=== PATIENT | male | born 1945 | race Caucasian/White ===

== ENCOUNTER 2016-06-22 13:25 | Emergency (ER) | payer MEDICARE, OTHER ==
[~2016-06-22] VITALS: Ht 167.6 cm; Wt 84.0 kg
[~2016-06-22 13:25] MED LIST: ALLO100T PO; ASPI-664 PO; ATOR10TA65 PO; CARV6.2579 PO; EZET10TA3 PO; FURO40TA4 PO; LANT3I SC; LINA5TAB PO; LOSA25TA5 PO; LYR75 PO; ONDA4TAB8 PO; PANT40TA4 PO
[2016-06-22 13:29] VITALS: Ht 167.6 cm; Wt 84.0 kg
[2016-06-22] MEDS ORDERED: AZITHROMYCIN 250 MG TAB PO ONE (16:30)
--- NOTE | 2016-06-22 16:56 | RADRPT ---
PROCEDURE: XR Chest. CLINICAL INDICATION: Shortness of breath. TECHNIQUE: Single frontal view. COMPARISON: 06/18/2015. FINDINGS: The lungs are clear. The heart is enlarged. There is calcification in the aorta consistent with atherosclerosis. There has been previous median sternotomy. There is a left-sided biventricular permanent pacemaker with l sanaz in the right atrium, right ventricle, and coronary sinus. There is a shock coil consistent wit h internal cardiac defibrillator on the right ventricular lead. There is no pleural effusion or pneumothorax. There is a new left shoulder reverse arthroplasty. IMPRESSION: 1. New left shoulder reverse arthroplasty. 2. Otherwise no change from 06/18/2015. RPTAT: QQ .Leland Resendiz MD, MD Date Time Electronically viewed and signed by .Leland Resendiz MD, on 06/22/2016 16:56 .R/
[2016-06-22] MEDS ORDERED: ONDANSETRON (ODT) 4 MG TAB ODT STA (17:35)
[2016-06-22] MEDS ORDERED: AZIT250T94 PO (17:36)
[2016-06-22] MEDS ORDERED: ONDA4TAB14 PO (17:36)
[2016-06-22 18:09] VITALS: BP 140/70; PULSE 75; RESP 18; TEMP 98.7
--- NOTE | 2016-06-22 18:26 | ERD ---
ER Documentation Chief Complaint Date/Time DATE: 06/22/16 TIME: 18:26 Chief Complaint cough x 2 days , spitting up blood today , sore throat HPI Patient is a 70-year-old male with CHF and diabetes who presents with a cough. The patient said that he started with severe cough on Tuesday at 3 AM. He said "my chest was full of garbage". He has been coughing all day and started with yellow coughing and it turned white. Today it turned pink and yellow as it was mixed with some blood and he was concerned. He takes an 81 mg aspirin but no other blood thinners. 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 Upon review of old medical records this is the patient's 10th visit to the ER since 2010. The patient's primary doctor is Dr. Hendricks. ROS All systems reviewed and are negative except as per history of present illness. Medications Home Meds Active Scripts Ondansetron (Ondansetron Odt) 4 Mg Tab.rapdis, 4 MG PO Q6H Y for NAUSEA AND/OR VOMITING, #30 TAB Prov:ABELARDO LORA MD 06/22/16 Azithromycin* (Zithromax*) 250 Mg Tablet, 250 MG PO DAILY for 4 Days, TAB Prov:ABELARDO LORA MD 06/22/16 Ondansetron Hcl* (Zofran*) 4 Mg Tablet, 4 MG PO Q8H Y for NAUSEA AND/OR VOMITING , #14 TAB Prov:PHANI WHALEN DO 03/19/15 Linagliptin (TRADJENTA) 5 Mg Tablet, 5 MG PO DAILY, #30 Prov:JEREMIE HENDRICKS MD 01/25/14 Ezetimibe* (Zetia*) 10 Mg Tab, 10 MG PO QHS for 30 Days Prov:JEREMIE HENDRICKS MD 01/25/14 Reported Medications Allopurinol* (Allopurinol*) 100 Mg Tablet, 100 MG PO DIRECTED 06/18/15 Pregabalin* (Lyrica*) 75 Mg Capsule, 75 MG PO BID, CAP 06/18/15 Aspirin* (Aspirin* EC) 81 Mg Tablet.dr, 81 MG PO DAILY, TAB 06/18/15 Losartan Potassium* (Losartan Potassium*) 25 Mg Tablet, 25 MG PO DAILY, TAB 03/19/15 Pantoprazole* (Pantoprazole*) 40 Mg Tablet.dr, 40 MG PO DAILY Y for GASTROINTESTINAL UPSET, TAB 03/19/15 Atorvastatin Calcium (Atorvastatin Calcium) 10 Mg Tablet, 10 MG PO QHS, TAB 03/19/15 Carvedilol* (Carvedilol*) 6.25 Mg Tablet, 6.25 MG PO BID, TAB 03/19/15 Furosemide* (Furosemide*) 40 Mg Tablet, 40 MG PO DAILY, TAB 03/19/15 Insulin Glargine* (Lantus*) 100 Unit/Ml Soln, 12 UNIT SC DAILY, EA 01/24/14 Allergies Allergies: Coded Allergies: ibuprofen (Unverified Allergy, Unknown, 06/18/15) PMhx/Soc History of Surgery: No (defibrillator 2011, CABG 2010, right knee surgery 2010) Anesthesia Reaction: No Hx Neurological Disorder: No Hx Respiratory Disorders: Yes (chronic cough) Hx Cardiac Disorders: Yes (heart attack 2011, HTN) Hx Psychiatric Problems: No Hx Miscellaneous Medical Probl: Yes (hearnia repair 2012) Hx Alcohol Use: Yes (socially once a month) Hx Substance Use: No Hx Tobacco Use: No Smoking Status: Never smoker FmHx Family History: No diabetes Physical Exam Vitals Vital Signs Date Time Temp Pulse Resp B/P Pulse Ox O2 Delivery O2 Flow Rate FiO2 06/22/16 18:09 98.7 75 18 140/70 100 Room Air 06/22/16 13:29 98.1 75 18 141/68 98 Physical Exam Const: No acute distress, speaking in full sentences Head: Atraumatic Eyes: Normal Conjunctiva ENT: Normal External Ears, Nose and Mouth. Neck: Full range of motion..~ No meningismus. Resp: Clear to auscultation bilaterally, no accessory muscle use or retractions Cardio: Regular rate and rhythm, no murmurs Abd: Soft, non tender, non distended. Normal bowel sounds Skin: No petechiae or rashes Back: No midline or flank tenderness Ext: No cyanosis, or edema Neur: Awake and alert Psych: Normal Mood and Affect Results 24 hrs Current Medications Medications (Trade) Dose Ordered Sig/Karthik Route PRN Reason Start Time Stop Time Status Last Admin Dose Admin Azithromycin (Zithromax) 500 mg ONCE ONCE PO 06/22/16 16:30 06/22/16 16:31 DC 06/22/16 16:41 Ondansetron HCl (Zofran Odt) 4 mg ONCE STAT ODT 06/22/16 17:35 06/22/16 17:37 DC 06/22/16 17:40 Procedures/MDM Chest x-ray showed no pneumonia per radiology. Patient is a 70-year-old male presents with cough with productive sputum and streaks of blood. I believe this is most likely a bronchitis. There is no sign of pneumonia on chest x-ray. I doubt pulmonary embolism or pneumothorax. I believe outpatient management is appropriate at this time. He is in no distress and is well-appearing otherwise. He has had no respiratory distress in the emergency department. The patient can return for any worsening symptoms. The patient went to follow-up closely with his primary doctor within 24-48 hours. He was given Zithromax and Zofran in the emergency department and will be discharged with the same. Departure Diagnosis: Primary Impression: Bronchitis Additional Impression: Hemoptysis Condition: Fair Patient Instructions: Bronchitis, Antiobiotic Treatment (Adult) Additional Instructions: Call your primary care doctor TOMORROW for an appointment during the next 1-2 days.See the doctor sooner or return here if your condition worsens before your appointment time. ABELARDO LORA MD Jun 22, 2016 18:26
== END 2016-06-22 18:11 | disposition home or self-care (01) ==
LOC: E/R 13:25
DX: J20.9 Acute bronchitis, unspecified (principal); R04.2 Hemoptysis; I10 Essential (primary) hypertension; I50.9 Heart failure, unspecified; E11.9 Type 2 diabetes mellitus without complications; Z79.4 Long term (current) use of insulin; Z79.82 Long term (current) use of aspirin; Z98.61 Coronary angioplasty status; Z95.810 Presence of automatic (implantable) cardiac defibrillator
CPT/HCPCS: 71010

== ENCOUNTER 2018-03-03 15:26 | Inpatient (IN) | END 2018-03-05 15:25 | disposition home or self-care (01) | DRG 291 ==

== ENCOUNTER 2018-03-19 21:44 | Observation (INO) | payer MEDICARE, OTHER ==
[~2018-03-19] VITALS: Ht 167.6 cm; Wt 89.0 kg
[~2018-03-19 21:44] MED LIST changes: +ALIR75PE SQ; +AMIO200T4 PO; -ASPI-664 PO; +ASPI-817 PO; -ATOR10TA65 PO; +CLOP75TA19 PO; +DULA1.5P SQ; -EZET10TA3 PO; +EZET10TA31 PO; +FINA5TAB4 PO; +FURO20TA3 PO; -FURO40TA4 PO; +IVAB5TAB PO; -LINA5TAB PO; -LOSA25TA5 PO; -LYR75 PO; +NATE120T PO; -ONDA4TAB8 PO; -PANT40TA4 PO; +ZOLP5TAB PO
[2018-03-20] VITALS (9 sets, daily range): BP systolic 112–126; BP diastolic 56–66; PULSE 55–69; RESP 16–22; Ht 167.6 cm; Wt 89.0 kg
[2018-03-20] MEDS ORDERED: FUROSEMIDE 20 MG INJ IV ONE
--- NOTE | 2018-03-20 | ERD ---
ER Documentation Chief Complaint Chief Complaint PALPITATIONS, SOB, WEAKNESS; STENTS AND ANGIOGRAM X2WKS AGO HPI This is a 72-year-old male who presents for evaluation of chest pain. Patient has a strong history of coronary disease, he is also had a valve replacement, he has an AICD and a pacemaker. He was admitted in February 2018, after discharge he states that he still has generally not felt well and has progressively develo ped more exertional shortness of breath. He denies fever, leg swelling, or hemoptysis, on his recent admission he had a CT angiogram to evaluate for pulmonary embolism which was negative. There are no relieving factors to his symptoms. ROS All systems reviewed and are negative except as per history of present illness. Medications Home Meds Active Scripts Zolpidem Tartrate (Ambien Mohamud) 5 Mg Tablet, 5 MG PO QHS PRN for INSOMNIA for 30 Days, #30 TAB 3 Refills Prov:CAMI HARPER MD 03/05/18 Furosemide* (Furosemide*) 20 Mg Tablet, 20 MG PO DAILY for 30 Days, #30 TAB 3 Refills Prov:CAMI HARPER MD 03/05/18 Finasteride* (Finasteride*) 5 Mg Tablet, 5 MG PO DAILY for 30 Days, #30 TAB 3 Refills Prov:CAMI HARPER MD 03/05/18 Allopurinol* (Allopurinol*) 100 Mg Tablet, 100 MG PO DAILY for 30 Days, #30 TAB 3 Refills Prov:CAMI HARPER MD 03/05/18 Amiodarone Hcl* (Amiodarone Hcl*) 200 Mg Tablet, 100 MG PO DAILY for 30 Days, #30 TAB 3 Refills Prov:CAMI HARPER MD 03/05/18 Reported Medications Dulaglutide (Trulicity) 1.5 Mg/0.5 Ml Pen.injctr, 1.5 MG SQ Q FRI 03/02/18 Nateglinide* (Nateglinide*) 120 Mg Tablet, 120 MG PO AC MEALS, TAB 03/02/18 Clopidogrel Bisulfate* (Clopidogrel Bisulfate*) 75 Mg Tablet, 75 MG PO DAILY, #30 TAB 03/02/18 Ezetimibe* (Zetia*) 10 Mg Tablet, 10 MG PO HS, TAB 03/02/18 Insulin Glargine* (Lantus*) 100 Unit/Ml Soln, 24 UNIT SC QHS, #1 VIAL 03/02/18 Alirocumab (Praluent Pen) 75 Mg/1 Ml Pen.injctr, 75 MG SQ Q 2 WEEK 03/02/18 Carvedilol* (Carvedilol*) 6.25 Mg Tablet, 6.25 MG PO BID, #60 TAB 03/02/18 Aspirin* (Aspirin* EC) 81 Mg Tablet.dr, 81 MG PO DAILY, TAB 03/02/18 Ivabradine HCl (Corlanor) 5 Mg Tablet, 5 MG PO BID, #60 TAB 03/02/18 Allergies Allergies: Coded Allergies: ibuprofen (Unverified Allergy, Unknown, 03/02/18) oxycodone (Unverified Allergy, Unknown, VOMITING, 03/02/18) PMhx/Soc History of Surgery: Yes (stent 2 wks ago, pacemaker 2013, shoulder 2015, open heart 2011, knee 20 yr) Anesthesia Reaction: No Hx Neurological Disorder: No Hx Respiratory Disorders: No Hx Cardiac Disorders: Yes (CHF, afib) Hx Psychiatric Problems: No Hx Miscellaneous Medical Probl: No Hx Alcohol Use: Yes (socially 1-2 beer/month) Hx Substance Use: No Hx Tobacco Use: Yes Smoking Status: Former smoker Physical Exam Vitals Vital Signs Date Temp Pulse Resp B/P (MAP) Pulse Ox O2 O2 Flow FiO2 Time Delivery Rate 03/19/18 98.0 55 24 119/63 97 Room Air 22:31 (81) 03/19/18 97.8 71 19 137/66 96 21:46 (89) Physical Exam Const: No acute distress Head: Atraumatic Eyes: Normal Conjunctiva ENT: Normal External Ears, Nose and Mouth. Neck: Full range of motion. No meningismus. Resp: Clear to auscultation bilaterally Cardio: Regular rate and rhythm, no murmurs Abd: Soft, non tender, non distended. Normal bowel sounds Skin: No petechiae or rashes Back: No midline or flank tenderness Ext: No cyanosis, or edema Neur: Awake and alert Psych: Normal Mood and Affect Result Diagram: 03/19/18230203/19/182302 Results 24 hrs Laboratory Tests Test 03/19/18 23:03 White Blood Count 7.8 10^3/ul Red Blood Count 4.00 10^6/ul Hemoglobin 11.8 g/dl Hematocrit 37.6 % Mean Corpuscular Volume 94.0 fl Mean Corpuscular Hemoglobin 29.5 pg Mean Corpuscular Hemoglobin Concent 31.4 g/dl Red Cell Distribution Width 13.5 % Platelet Count 247 10^3/UL Mean Platelet Volume 10.4 fl Immature Granulocytes % 0.400 % Neutrophils % 71.9 % Lymphocytes % 15.7 % Monocytes % 9.0 % Eosinophils % 2.2 % Basophils % 0.8 % Nucleated Red Blood Cells % 0.0 /100WBC Immature Granulocytes # 0.030 10^3/ul Neutrophils # 5.6 10^3/ul Lymphocytes # 1.2 10^3/ul Monocytes # 0.7 10^3/ul Eosinophils # 0.2 10^3/ul Basophils # 0.1 10^3/ul Nucleated Red Blood Cells # 0.0 10^3/ul Prothrombin Time 14.8 Sec Prothrombin Time Ratio 1.2 INR International Normalized Ratio 1.15 Sodium Level 138 mmol/L Potassium Level 4.3 mmol/L Chloride Level 108 mmol/L Carbon Dioxide Level 21 mmol/L Anion Gap 9 Blood Urea Nitrogen 36 mg/dl Creatinine 1.62 mg/dl Est Glomerular Filtrat Rate mL/min mL/min Glucose Level 87 mg/dl Calcium Level 9.1 mg/dl Total Bilirubin 0.1 mg/dl Direct Bilirubin 0.00 mg/dl Indirect Bilirubin 0.1 mg/dl Aspartate Amino Transf (AST/SGOT) 84 IU/L Alanine Aminotransferase (ALT/SGPT) 87 IU/L Alkaline Phosphatase 95 IU/L Troponin I 0.024 ng/ml B-Type Natriuretic Peptide 5270 PG/ML Total Protein 6.8 g/dl Albumin 3.9 g/dl Globulin 2.90 g/dl Albumin/Globulin Ratio 1.34 Current Medications Medications Dose Sig/Karthik Start Time Status Last (Trade) Ordered Route PRN Stop Time Admin Dose Reason Admin Furosemide 20 mg ONCE ONCE 03/20/18 UNV (Lasix) IV 00:00 03/20/18 00:01 Procedures/MDM This is a pleasant 72-year-old male who presents for evaluation of exertional chest pain and shortness of breath. Given his strong cardiac history, my primary concern was for acute coronary syndrome, his troponin was negative, his basal natruretic peptide does show an increase, and I have concern for worsening CHF. I do not suspect pulmonary embolism, or aortic dissection. I recommend the patient be admitted for treatment and further workup, he will be given a dose of IV Lasix here. Patient will be admitted to Dr. Harper in telemetry Departure Diagnosis: Primary Impression: Chest pain Chest pain type: unspecified Qualified Codes: R07.9 - Chest pain, unspecified Additional Impressions: Acute exacerbation of CHF (congestive heart failure) Heart failure type: systolic Qualified Codes: I50.23 - Acute on chronic systolic (congestive) heart failure Essential (primary) hypertension Condition: Stable CAREY BLISS MD Mar 20, 2018 00:00
[2018-03-20] MEDS ORDERED: DOCUSATE SODIUM 100 MG CAP PO PRN (03:00)
[2018-03-20] MEDS ORDERED: NITROGLYCERIN (SL) 0.4 MG TAB SL PRN (03:00)
[2018-03-20] MEDS ORDERED: ONDANSETRON 4 MG INJ IV PRN (03:00)
[2018-03-20] MEDS ORDERED: NACL 0.9% 3 ML SYG IV SCH (03:00)
[2018-03-20] MEDS ORDERED: ACETAMINOPHEN 325 MG TAB PO PRN (03:00)
[2018-03-20] MEDS ORDERED: LORAZEPAM 0.5 MG TAB PO PRN (03:00)
[2018-03-20] MEDS ORDERED: ZOLPIDEM 5 MG TAB PO PRN ×2 (03:00)
[2018-03-20] MEDS ORDERED: BISACODYL (EC) 5 MG TAB PO PRN (03:00)
[2018-03-20] MEDS ORDERED: GLUCOSE GEL 15 GRAM TUBE PO PRN ×2 (04:00)
[2018-03-20] MEDS ORDERED: GLUCOSE GEL 15 GRAM TUBE BUCCAL PRN (04:00)
[2018-03-20] MEDS ORDERED: GLUCAGON 1 MG INJ IM PRN (04:00)
[2018-03-20] MEDS ORDERED: DEXTROSE 50% 50 ML SYRINGE IV PRN ×2 (04:00)
[2018-03-20] MEDS: NATEGLINIDE 120 MG TAB PO SCH ×2 (07:25→11:20)
[2018-03-20] MEDS: INSULIN ASPART [NOVOLOG] 3 ML PEN SC SCH ×4 (07:45→21:00)
[2018-03-20] MEDS ORDERED: IVABRADINE HCL 5 MG TABLET PO SCH (07:55)
[2018-03-20] MEDS: ASPIRIN (EC) 81 MG TAB PO SCH (08:10)
[2018-03-20] MEDS: ALLOPURINOL 100 MG TAB PO SCH (08:10)
[2018-03-20] MEDS: FUROSEMIDE 20 MG TAB PO SCH (08:10)
[2018-03-20] MEDS: FINASTERIDE 5 MG TAB PO SCH (08:10)
[2018-03-20] MEDS: CLOPIDOGREL 75 MG TAB PO SCH (08:10)
[2018-03-20] MEDS: HEPARIN 5,000 UNIT/1 ML VIAL SC SCH ×2 (08:19→21:39)
[2018-03-20] MEDS ORDERED: AMIODARONE 200 MG TAB PO SCH (09:00)
--- NOTE | 2018-03-20 10:25 | CONS ---
DATE OF ADMISSION: 03/19/2018 DATE OF CONSULTATION: 03/20/2018 TYPE OF CONSULTATION: Nephrology. REASON FOR CONSULTATION: Acute kidney injury, chronic kidney disease. PHYSICIAN REQUESTING CONSULT: Leo Iraheta MD HISTORY OF PRESENT ILLNESS: This is a 72-year-old male with a past medical history of CKD stage 3B w ith previous baseline creatinine around 1.5 and 1.6 mg/dL, a history of coronary artery disease, stat us post CABG, history of arrhythmia, history of pacemaker, history of ICD placement, history of diabe prateek, hypertension who presents to [facility] with complaints of generalized weaknes s, shortness of breath. The patient was recently admitted to [facility] 2 weeks ago with similar complaints of shortness of breath, at that time the patient was noted to be decompensated heart failure, was diuresed and discharged. Since his discharge, the patient santosh nues to have complaints of generalized weakness, palpitations, shortness of breath. The patient feel s that he has not felt the same since his recent stent placement 2 to 3 weeks ago. He denies hemopty sis, hematemesis or hematochezia. The patient states that he has been taking intermittent diuretics. He has had adequate urinary output. PAST MEDICAL HISTORY: History of chronic kidney disease, history of hypertension, history of coronar y artery disease, history of arrhythmia, history of valvular heart disease, history of diabetes. PAST SURGICAL HISTORY: Status post CABG, status post pacemaker, status post ICD placement. FAMILY HISTORY: No family history of kidney disease. SOCIAL HISTORY: Does not drink, smoke, do drugs. MEDICATIONS: The patient been reviewed. ALLERGIES: Please see list. REVIEW OF SYSTEMS: A 14-point review of systems conducted. Pertinent positives stated in HPI, other davis negative. PHYSICAL EXAMINATION: VITAL SIGNS: Blood pressure is 123/66, pulse 55, respiration 18, temperature 97.9. HEENT: Head is normocephalic. NECK: Supple. HEART: Regular rate. LUNGS: Show diminished breath sounds at base. ABDOMEN: Soft, nontender to palpation without rebound or guarding. EXTREMITIES: Negative for clubbing, cyanosis. Positive edema. DERMATOLOGIC: No rashes. MUSCULOSKELETAL: No joint effusion. NEUROLOGIC: No focal deficits. MEDICATIONS: Have been reviewed. LABORATORY DATA: Shows sodium 138, potassium 4.3, BUN 36, creatinine 1.62. AST, ALT elevated. BNP 5000. IMAGING: Chest x-ray shows stable cardiomegaly without evidence of overt failure, pneumonia. ASSESSMENT AND PLAN: This is a 72-year-old male who presents with: 1. Nonoliguric acute kidney injury on top of chronic kidney disease with previous baseline creatinin e around 1.5 to 1.8 mg/dL. Etiology of current acute kidney injury is secondary to hemodynamics. Re nal function is near baseline. Recommendation would be to check UA with microanalysis, check urine e lectrolytes. We will continue current medical management. Continue diuretic therapy, monitor electr olytes and renal function closely. Otherwise, continue supportive care, renally dose all meds, avoid nephrotoxins. 2. Acute heart failure, systolic, diastolic. The patient is currently decompensated with shortness of breath, elevated JVD, positive lower extremity edema. Continue diuretic regimen. Monitor I's and O's and renal function closely. Follow up with Cardiology. 3. Anemia. Monitor hemoglobin and hematocrit levels. 4. Mineral bone disorder, monitor calcium and phosphorus levels. 5. Chest pain, palpitations. Etiology may be secondary to congestive heart failure, rule out acute coronary syndrome. Check serial troponins medical management. Continue aspirin, continue beta block er. Follow up with cardiology. 6. Diabetes. Continue current insulin regimen. 7. Coronary artery disease. Continue medical management. 8. Sinus arrhythmia, status post pacemaker. Continue current treatment plan. 9. History of valvular heart disease. 10. Benign prostatic hypertrophy. Continue Proscar. Thank you, Dr. Iraheta, for this interesting consult. It will be a pleasure to follow patient with y ou throughout the hospital course. Dictated By: VIVIAN MAYORGA DO NR/NTS Conf#: [id number] DID#: [id number] CC: LEO IRAHETA MD;*EndCC*
--- NOTE | 2018-03-20 13:31 | HP ---
Date/Time of Note Date/Time of Note DATE: 03/20/18 TIME: 13:06 Assessment/Plan VTE Prophylaxis Risk score (from Nsg)>0 risk: 5 SCD applied (from Nsg): No SCD contraindicated: low risk/ambulating Pharmacological prophylaxis: heparin Lines/Catheters IV Catheter Type (from Nrs): Saline Lock Urinary Cath still in place: No Assessment/Plan Problems: (1) Chest pain Status: Acute Comment: May or may not be truly cardiac in nature. Consider possibility of onset of anxiety since most recent angioplasty. Will defer to cardiology to evaluate and decide. Qualifiers: Chest pain type: unspecified Qualified Codes: R07.9 - Chest pain, unspecified (2) Acute exacerbation of CHF (congestive heart failure) Status: Acute Comment: BNP elevated but possibly baseline for this pt. Will defer to cardiology and nephrology to decide if increase in baseline diuretics is warranted. Qualifiers: Heart failure type: systolic Qualified Codes: I50.23 - Acute on chronic systolic (congestive) heart failure (3) Chronic diastolic heart failure Status: Chronic Comment: See above. Cont. current regimen. 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 ASA and clopidogrel. Defer to cardiology. (5) Essential (primary) hypertension Status: Chronic Comment: BP in good control on carvedilol. Defer to cardiology. (6) Presence of xenogenic heart valve Status: Chronic Comment: Defer to cardiology (7) Presence of coronary angioplasty implant and graft Status: Chronic Comment: On ASA and clopidogrel. Defer to cardiology. (8) Presence of cardiac pacemaker Status: Chronic Comment: Seems to be operational. Defer to cardiology. (9) Chronic kidney disease, stage II (mild) Status: Chronic Comment: Stable. Defer to nephrology especially to monitor in the face of p ossibly increasing diuresis. (10) Enlarged prostate with lower urinary tract symptoms (LUTS) Status: Chronic Comment: Cont. finasteride. (11) Hyperuricemia without signs of inflammatory arthritis and tophaceous disease Status: Chronic Comment: Cont. allopurinol (12) Type 2 diabetes mellitus with other specified complication Status: Chronic Comment: In good control on lower dose lantus plus weekly dulasteride. Refusing nateglinide. Will hold for now. (13) Hyperlipidemia Status: Chronic Comment: Cont. ezetimibe and praluent. Result Diagram: 03/19/18 2303 03/19/18 2303 Results 24hrs Laboratory Tests Test 03/19/18 23:03 03/20/18 07:44 03/20/18 08:44 03/20/18 11:54 White Blood Count 7.8 # Red Blood Count 4.00 L Hemoglobin 11.8 L Hematocrit 37.6 L Mean Corpuscular Volume 94.0 Mean Corpuscular 29.5 Hemoglobin Mean Corpuscular 31.4 L Hemoglobin Concent Red Cell Distribution 13.5 Width Platelet Count 247 Mean Platelet Volume 10.4 Immature Granulocytes % 0.400 Neutrophils % 71.9 Lymphocytes % 15.7 Monocytes % 9.0 Eosinophils % 2.2 Basophils % 0.8 Nucleated Red Blood 0.0 Cells % Immature Granulocytes # 0.030 Neutrophils # 5.6 Lymphocytes # 1.2 Monocytes # 0.7 Eosinophils # 0.2 Basophils # 0.1 Nucleated Red Blood 0.0 Cells # Prothrombin Time 14.8 Prothrombin Time Ratio 1.2 INR International 1.15 Normalized Ratio Sodium Level 138 Potassium Level 4.3 Chloride Level 108 Carbon Dioxide Level 21 Anion Gap 9 Blood Urea Nitrogen 36 H Creatinine 1.62 H Est Glomerular Filtrat Rate mL/min Glucose Level 87 Calcium Level 9.1 Total Bilirubin 0.1 L Direct Bilirubin 0.00 Indirect Bilirubin 0.1 Aspartate Amino 84 H Transf (AST/SGOT) Alanine 87 H Aminotransferase (ALT/SG PT) Alkaline Phosphatase 95 Troponin I 0.024 B-Type Natriuretic 5270 H Peptide Total Protein 6.8 Albumin 3.9 Globulin 2.90 Albumin/Globulin Ratio 1.34 Bedside Glucose 76 119 109 HPI/ROS Admit Date/Time Admit Date/Time Mar 19, 2018 at 23:50 Hx of Present Illness 72 y/o [place] M w/ h/o T2DM, HTN, hyperlipidemia, CKD stage 2, BPH, xenogenic heart valve replacement, diastolic CHF, CAD w/ AICD and recent PCI w/ stent placement s/p hospitalization for CHF exacerbation 2 weeks ago. Pt. reports that since then has failed to regain his strength. Has opted out of cardiac rehab since that time and reports decreased exercise tolerance. However, felt well enough until last night when he was sitting at home and developed sensation of electric shock sensation radiating up to his head. Subsequently became diaphoretic and developed rushing sensation at lower mid-left chest. Came to ER. Troponin (-). BNP 5,270. CXR did not show infiltrate. Pt. admitted. Of note, since admit pt. had complete recurrence of symptoms from last night including sensation of diaphoresis which nurse reports pt. did NOT appear diaphoretic. In addition HR monitor did not validate tachycardia in that moment. ROS Constitutional: diaphoresis Eyes: no complaints ENT: no complaints Respiratory: shortness of breath Cardiovascular: lightheadedness, palpitations Gastrointestinal: no complaints Genitourinary: no complaints Musculoskeletal: no complaints Neurologic: no complaints PMH/Family/Social Past Medical History Medical History: angina, congestive heart failure, coronary artery disease, diabetes, high cholesterol, hypertension, renal disease, other (BPH, hyperuricemia) Medications Current Medications Allopurinol (Zyloprim) 100 mg DAILY PO Last administered on 03/20/18at 08:10; Admin Dose 100 MG; Start 03/20/18 at 09:00 Amiodarone HCl (Cordarone) 100 mg DAILY PO ; Start 03/20/18 at 09:00 Aspirin (Halfprin) 81 mg DAILY PO Last administered on 03/20/18at 08:10; Admin Dose 81 MG; Start 03/20/18 at 09:00 Carvedilol (Coreg) 6.25 mg BID PO ; Start 03/20/18 at 09:00 Clopidogrel Bisulfate (plaVIX) 75 mg DAILY PO Last administered on 03/20/18at 08:10; Admin Dose 75 MG; Start 03/20/18 at 09:00 EZETIMIBE (Zetia) 10 mg HS PO ; Start 03/20/18 at 21:00 Finasteride (Proscar) 5 mg DAILY PO Last administered on 03/20/18at 08:10; Admin Dose 5 MG; Start 03/20/18 at 09:00 Furosemide (Lasix) 20 mg DAILY PO Last administered on 03/20/18at 08:10; Admin Dose 20 MG; Start 03/20/18 at 09:00 Ivabradine (Corlanor) 5 mg BID WITH MEALS PO ; Start 03/20/18 at 07:55 Nateglinide (Starlix) 120 mg AC MEALS PO ; Start 03/20/18 at 07:25 IV Flush (NS 3 ml) 3 ml PER PROTOCOL IV ; Start 03/20/18 at 03:00 Lorazepam (Ativan) 0.5 mg Q8H PRN PO ANXIETY; Start 03/20/18 at 03:00 Ondansetron HCl (Zofran Inj) 4 mg Q6H PRN IV NAUSEA AND/OR VOMITING; Start 03/20/18 at 03:00 Nitroglycerin (Nitroglycerin (Sl Tab) 0.4 Mg) 1 tab Q5M PRN SL CHEST PAIN; Start 03/20/18 at 03:00 Acetaminophen (Tylenol Tab) 650 mg Q6H PRN PO PAIN LEVEL 1-3 OR FEVER Last administered on 03/20/18at 04:54; Admin Dose 650 MG; Start 03/20/18 at 03:00 Zolpidem Tartrate (Ambien) 5 mg QHS PRN PO INSOMNIA; Start 03/20/18 at 03:00 Docusate Sodium (Colace) 100 mg Q12H PRN PO CONSTIPATION; Start 03/20/18 at 03:00 Bisacodyl (Dulcolax) 5 mg DAILY PRN PO CONSTIPATION; Start 03/20/18 at 03:00 Heparin Sodium (Porcine) (Heparin (5000 Units/1ml)) 5,000 unit Q12 SC Last administered on 03/20/18at 08:19; Admin Dose 5,000 UNIT; Start 03/20/18 at 09:00 Diagnostic Test (Pha) (Accu-Chek) 1 ea 02 XX ; Start 03/21/18 at 02:00 Insulin Glargine (Lantus) 12 units DAILY@2000 SC ; Start 03/20/18 at 20:00 Insulin Aspart (Novolog Insulin Pen) NOVOLOG *MILD* ALGORITHM WITH MEALS BEDTIME SC ; Start 03/20/18 at 07:55 Miscellaneous Information 1 ea NOTE XX ; Start 03/20/18 at 04:00 Glucose (Glutose) 15 gm Q15M PRN PO DECREASED GLUCOSE; Start 03/20/18 at 04:00 Glucose (Glutose) 22.5 gm Q15M PRN PO DECREASED GLUCOSE; Start 03/20/18 at 04:00 Dextrose (D50w Syringe) 25 ml Q15M PRN IV DECREASED GLUCOSE; Start 03/20/18 at 04:00 Dextrose (D50w Syringe) 50 ml Q15M PRN IV DECREASED GLUCOSE; Start 03/20/18 at 04:00 Glucagon (Glucagen) 1 mg Q15M PRN IM DECREASED GLUCOSE; Start 03/20/18 at 04:00 Glucose (Glutose) 15 gm Q15M PRN BUCCAL DECREASED GLUCOSE; Start 03/20/18 at 04:00 Coded Allergies: ibuprofen (Unverified Allergy, Unknown, 03/02/18) oxycodone (Unverified Allergy, Unknown, VOMITING, 03/02/18) Past Surgical History Past Surgical Hx: angioplasty, other (aortic valve bioprosthesis, benign bladder cystectomy, TKA, shoulder surgery, AICD placement) Family History Significant Family History: cancer (stomach in father), other (aortic disease in mother) Social History B. 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 ago) Drug Use: none Exam/Review of Systems Vital Signs Vitals VS - Last 72 Hours, by Label Date Temp Pulse Resp B/P (MAP) Pulse Ox O2 O2 Flow FiO2 Time Delivery Rate 03/20/18 55 12:22 03/20/18 98.1 55 17 124/64 94 Room Air 11:24 (84) 03/20/18 55 08:14 03/20/18 Nasal 2.0 07:40 Cannula 03/20/18 97.9 63 18 123/66 96 Nasal 2.0 07:36 (85) Cannula 03/20/18 98.1 55 19 112/60 97 04:00 (77) 03/20/18 55 04:00 03/20/18 2.0 03:00 03/20/18 Nasal 2.0 02:50 Cannula 03/20/18 98.0 57 22 126/66 99 Nasal 2.0 02:30 (86) Cannula 03/20/18 55 26 125/73 97 Nasal 2.0 01:30 (90) Cannula 03/20/18 55 22 124/64 96 Nasal 2.0 01:00 (84) Cannula 03/20/18 98.3 59 19 126/73 99 Nasal 2.0 00:45 (90) Cannula 03/19/18 98.0 55 24 119/63 97 Room Air 22:31 (81) 03/19/18 97.8 71 19 137/66 96 21:46 (89) Vital Signs Date Temp Pulse Resp B/P (MAP) Pulse Ox O2 O2 Flow FiO2 Time Delivery Rate 03/20/18 55 12:22 03/20/18 98.1 17 124/64 94 Room Air 11:24 (84) 03/20/18 2.0 07:40 Intake and Output 03/19/18 03/19/18 03/20/18 1515:00 23:00 07:00 IntakeIntake Total 120 ml OutputOutput Total 100 ml BalanceBalance 20 ml Exam Constitutional: alert, oriented, other (obese) Psych: no complaints, nl mood/affect Respiratory: clear to auscultation, normal air movement Cardiovascular: regular rate and rhythm, nl pulses; No edema, No murmurs/extra sounds, No rub Gastrointestinal: soft, nl liver, spleen, non-tender, bowel sounds; No mass, No rebound or guarding Musculoskeletal: nl extremities to inspection Extremities: normal pulses; No cyanosis, No clubbing, No edema 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
--- NOTE | 2018-03-20 16:45 | CONS ---
Date/Time of Note Date/Time of Note DATE: 03/20/18 TIME: 16:38 Assessment/Plan Assessment/Plan Hospital Course 1. Dyspnea multifactorial mostly secondary to congestive heart failure: 2. Congestive heart failure acute on chronic secondary systolic heart failure 3. Hypertension 4. Diabetes 5. Coronary artery disease status post PCI of LAD 6. Dyslipidemia 7. Status post by V ICD 8. 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 Renal insufficiency: Recommendations: Continue with aspirin and Plavix We will continue with home carvedilol and Zetia Patient has not tolerating statin and is as an outpatient on PCSK9 inhibitors. We will continue that as outpatient every 2 weeks Lasix as per renal Diabetic management as per internal medicine/endocrine I will discontinue the amiodarone given his generalized fatigue and monitor him. We will check the thyroid function test as well Thank you for this referral. We will continue to follow along with you DAYANARA MORTON MD [facility] Result Diagram: 03/19/183 03/19/18 2303 Results 24hrs Laboratory Tests Test 03/19/18 23:03 03/20/18 07:44 03/20/18 08:44 03/20/18 11:54 White Blood Count 7.8 # Red Blood Count 4.00 L Hemoglobin 11.8 L Hematocrit 37.6 L Mean Corpuscular Volume 94.0 Mean Corpuscular 29.5 Hemoglobin Mean Corpuscular 31.4 L Hemoglobin Concent Red Cell Distribution 13.5 Width Platelet Count 247 Mean Platelet Volume 10.4 Immature Granulocytes % 0.400 Neutrophils % 71.9 Lymphocytes % 15.7 Monocytes % 9.0 Eosinophils % 2.2 Basophils % 0.8 Nucleated Red Blood 0.0 Cells % Immature Granulocytes # 0.030 Neutrophils # 5.6 Lymphocytes # 1.2 Monocytes # 0.7 Eosinophils # 0.2 Basophils # 0.1 Nucleated Red Blood 0.0 Cells # Prothrombin Time 14.8 Prothrombin Time Ratio 1.2 INR International 1.15 Normalized Ratio Sodium Level 138 Potassium Level 4.3 Chloride Level 108 Carbon Dioxide Level 21 Anion Gap 9 Blood Urea Nitrogen 36 H Creatinine 1.62 H Est Glomerular Filtrat Rate mL/min Glucose Level 87 Calcium Level 9.1 Total Bilirubin 0.1 L Direct Bilirubin 0.00 Indirect Bilirubin 0.1 Aspartate Amino 84 H Transf (AST/SGOT) Alanine 87 H Aminotransferase (ALT/SG PT) Alkaline Phosphatase 95 Troponin I 0.024 B-Type Natriuretic 5270 H Peptide Total Protein 6.8 Albumin 3.9 Globulin 2.90 Albumin/Globulin Ratio 1.34 Bedside Glucose 76 119 109 Test 03/20/18 13:20 Urine Color STRAW Urine Clarity CLEAR Urine pH 5.0 Urine Specific [place] 1.010 Urine Ketones NEGATIVE Urine Nitrite NEGATIVE Urine Bilirubin NEGATIVE Urine Urobilinogen NEGATIVE Urine Leukocyte Esterase NEGATIVE Urine Hemoglobin NEGATIVE Urine Random Creatinine 39.17 Urine Random Sodium 139 H Urine Glucose NEGATIVE Urine Total Protein 12.0 H Consultation Date/Type/Reason Admit Date/Time Mar 19, 2018 at 23:50 Date of Consultation: Mar 20, 2018 Type of Consult cv Reason for Consultation CHF Requesting Provider: CAMI IRAHETA MD Hx of Present Illness Hx of Present Illness Interventional cardiology consultation note Chief complaint: Shortness of breath, weakness Reason for consult: Congestive heart failure cardiomyopathy History of present illness: Thank you for this referral. History was obtained from the patient from discussion with the staff and physicians. Patient is also very well-known to me from office visits. Patient's old record was reviewed as well This is a very pleasant 72-year-old gentleman with multiple complicated medical history who came to emergency with complaint of shortness of breath fatigue and weakness over the past few days. Patient denies any chest pain or pressure. He also complains of orthopnea and difficulty breathing at nighttime has been having to sleep on 3 pillows. He has had minimal lower extremity edema. Allergies: Ibuprofen and oxycodone Medications were reviewed as per medical reconciliation sheet PAST MEDICAL HISTORY: Congestive heart failure, severe nonischemic cardiomyopathy, ejection fraction 25 to 31st %, history of aortic valve replacement, history of biventricular ICD placement, history of diabetes, hyper tension, dyslipidemia, hyperkalemia, chronic kidney disease, BPH. Ventricular tachycardia status post ICD discharge within the past few weeks. Patient also with significant coronary artery disease status post PCI of his LAD in 2018 PAST SURGICAL HISTORY: Aortic valve replacement in May 2010 with a 25 mm bioprosthetic aortic valve, history of biventricular ICD a [employer] ICD which had a change done last year by myself, history of the right knee surgery, cardiac catheterization in April 2009 showed ejection murmur at 20% at that time. Also had shown only 20% LAD disease and 20% RCA disease at that time. He had hernia repair in October [address] Lemon. PCI of his LAD 2018 ALLERGIES: NO KNOWN ALLERGIES. SOCIAL HISTORY: Does not smoke or drink. FAMILY HISTORY: No early coronary artery disease. Past Medical History Medical History: angina, congestive heart failure, coronary artery disease, diabetes, high cholesterol, hypertension, renal disease, other (BPH, hyperuricemia) Medications Current Medications Allopurinol (Zyloprim) 100 mg DAILY PO Last administered on 03/20/18at 08:10; Admin Dose 100 MG; Start 03/20/18 at 09:00 Amiodarone HCl (Cordarone) 100 mg DAILY PO ; Start 03/20/18 at 09:00 Aspirin (Halfprin) 81 mg DAILY PO Last administered on 03/20/18at 08:10; Admin Dose 81 MG; Start 03/20/18 at 09:00 Carvedilol (Coreg) 6.25 mg BID PO ; Start 03/20/18 at 09:00 Clopidogrel Bisulfate (plaVIX) 75 mg DAILY PO Last administered on 03/20/18at 08:10; Admin Dose 75 MG; Start 03/20/18 at 09:00 EZETIMIBE (Zetia) 10 mg HS PO ; Start 03/20/18 at 21:00 Finasteride (Proscar) 5 mg DAILY PO Last administered on 03/20/18at 08:10; Admin Dose 5 MG; Start 03/20/18 at 09:00 Furosemide (Lasix) 20 mg DAILY PO Last administered on 03/20/18at 08:10; Admin Dose 20 MG; Start 03/20/18 at 09:00 IV Flush (NS 3 ml) 3 ml PER PROTOCOL IV ; Start 03/20/18 at 03:00 Lorazepam (Ativan) 0.5 mg Q8H PRN PO ANXIETY; Start 03/20/18 at 03:00 Ondansetron HCl (Zofran Inj) 4 mg Q6H PRN IV NAUSEA AND/OR VOMITING; Start 03/20/18 at 03:00 Nitroglycerin (Nitroglycerin (Sl Tab) 0.4 Mg) 1 tab Q5M PRN SL CHEST PAIN; Start 03/20/18 at 03:00 Acetaminophen (Tylenol Tab) 650 mg Q6H PRN PO PAIN LEVEL 1-3 OR FEVER Last administered on 03/20/18at 04:54; Admin Dose 650 MG; Start 03/20/18 at 03:00 Zolpidem Tartrate (Ambien) 5 mg QHS PRN PO INSOMNIA; Start 03/20/18 at 03:00 Docusate Sodium (Colace) 100 mg Q12H PRN PO CONSTIPATION; Start 03/20/18 at 03:00 Bisacodyl (Dulcolax) 5 mg DAILY PRN PO CONSTIPATION; Start 03/20/18 at 03:00 Heparin Sodium (Porcine) (Heparin (5000 Units/1ml)) 5,000 unit Q12 SC Last administered on 03/20/18at 08:19; Admin Dose 5,000 UNIT; Start 03/20/18 at 09:00 Diagnostic Test (Pha) (Accu-Chek) 1 ea 02 XX ; Start 03/21/18 at 02:00 Insulin Glargine (Lantus) 12 units DAILY@2000 SC ; Start 03/20/18 at 20:00 Insulin Aspart (Novolog Insulin Pen) NOVOLOG *MILD* ALGORITHM WITH MEALS BEDTIME SC ; Start 03/20/18 at 07:55 Miscellaneous Information 1 ea NOTE XX ; Start 03/20/18 at 04:00 Glucose (Glutose) 15 gm Q15M PRN PO DECREASED GLUCOSE; Start 03/20/18 at 04:00 Glucose (Glutose) 22.5 gm Q15M PRN PO DECREASED GLUCOSE; Start 03/20/18 at 04:00 Dextrose (D50w Syringe) 25 ml Q15M PRN IV DECREASED GLUCOSE; Start 03/20/18 at 04:00 Dextrose (D50w Syringe) 50 ml Q15M PRN IV DECREASED GLUCOSE; Start 03/20/18 at 04:00 Glucagon (Glucagen) 1 mg Q15M PRN IM DECREASED GLUCOSE; Start 03/20/18 at 04:00 Glucose (Glutose) 15 gm Q15M PRN BUCCAL DECREASED GLUCOSE; Start 03/20/18 at 04:00 Ivabradine (Corlanor) 2.5 mg BID WITH MEALS PO ; Start 03/20/18 at 17:55 Allergies: Coded Allergies: ibuprofen (Unverified Allergy, Unknown, 03/02/18) oxycodone (Unverified Allergy, Unknown, VOMITING, 03/02/18) Past Surgical History Past Surgical Hx: angioplasty, other (aortic valve bioprosthesis, benign bladder cystectomy, TKA, shoulder surgery, AICD placement) Social History Alcohol Use: occasionally Smoking Status: Former smoker (1.5 ppd x 25 y, quit 32 y. ago) Drug Use: none Exam/Review of Systems Vital Signs Vitals Vital Signs Date Temp Pulse Resp B/P (MAP) Pulse Ox O2 O2 Flow FiO2 Time Delivery Rate 03/20/18 69 16:11 03/20/18 97.7 16 121/64 95 Room Air 15:22 (83) 03/20/18 2.0 13:00 Intake and Output 03/19/18 03/19/18 03/20/18 1515:00 23:00 07:00 IntakeIntake Total 120 ml OutputOutput Total 100 ml BalanceBalance 20 ml Exam General: no acute distress HEENT: NC/AT. pupils are equal. round. NECK: + JVD. no stridor. CV: RRR. systolic murmur; no gallop or rubs. PULM: no wheezing or rhonchi. GI: SOFT, NT, ND, no rebound or guarding Extremity: trace B/L LE edema. no clubbing. neuro: awake and alert, OX3. Psych: calm and pleasant rectal: deferred : normal EKG shows ventricular paced rhythm Chest x-ray shows: 1. Stable cardiomegaly without evidence of overt congestive failure or pneumonia. 2. Biventricular pacemaker, also stable. 3. Reverse arthroplasty left shoulder new since the prior study. Medications Medications Current Medications Allopurinol (Zyloprim) 100 mg DAILY PO Last administered on 03/20/18at 08:10; Admin Dose 100 MG; Start 03/20/18 at 09:00 Amiodarone HCl (Cordarone) 100 mg DAILY PO ; Start 03/20/18 at 09:00 Aspirin (Halfprin) 81 mg DAILY PO Last administered on 03/20/18at 08:10; Admin Dose 81 MG; Start 03/20/18 at 09:00 Carvedilol (Coreg) 6.25 mg BID PO ; Start 03/20/18 at 09:00 Clopidogrel Bisulfate (plaVIX) 75 mg DAILY PO Last administered on 03/20/18at 08:10; Admin Dose 75 MG; Start 03/20/18 at 09:00 EZETIMIBE (Zetia) 10 mg HS PO ; Start 03/20/18 at 21:00 Finasteride (Proscar) 5 mg DAILY PO Last administered on 03/20/18at 08:10; Admin Dose 5 MG; Start 03/20/18 at 09:00 Furosemide (Lasix) 20 mg DAILY PO Last administered on 03/20/18at 08:10; Admin Dose 20 MG; Start 03/20/18 at 09:00 IV Flush (NS 3 ml) 3 ml PER PROTOCOL IV ; Start 03/20/18 at 03:00 Lorazepam (Ativan) 0.5 mg Q8H PRN PO ANXIETY; Start 03/20/18 at 03:00 Ondansetron HCl (Zofran Inj) 4 mg Q6H PRN IV NAUSEA AND/OR VOMITING; Start 03/20/18 at 03:00 Nitroglycerin (Nitroglycerin (Sl Tab) 0.4 Mg) 1 tab Q5M PRN SL CHEST PAIN; Start 03/20/18 at 03:00 Acetaminophen (Tylenol Tab) 650 mg Q6H PRN PO PAIN LEVEL 1-3 OR FEVER Last administered on 03/20/18at 04:54; Admin Dose 650 MG; Start 03/20/18 at 03:00 Zolpidem Tartrate (Ambien) 5 mg QHS PRN PO INSOMNIA; Start 03/20/18 at 03:00 Docusate Sodium (Colace) 100 mg Q12H PRN PO CONSTIPATION; Start 03/20/18 at 03:00 Bisacodyl (Dulcolax) 5 mg DAILY PRN PO CONSTIPATION; Start 03/20/18 at 03:00 Heparin Sodium (Porcine) (Heparin (5000 Units/1ml)) 5,000 unit Q12 SC Last administered on 03/20/18at 08:19; Admin Dose 5,000 UNIT; Start 03/20/18 at 09:00 Diagnostic Test (Pha) (Accu-Chek) 1 ea 02 XX ; Start 03/21/18 at 02:00 Insulin Glargine (Lantus) 12 units DAILY@2000 SC ; Start 03/20/18 at 20:00 Insulin Aspart (Novolog Insulin Pen) NOVOLOG *MILD* ALGORITHM WITH MEALS BEDTIME SC ; Start 03/20/18 at 07:55 Miscellaneous Information 1 ea NOTE XX ; Start 03/20/18 at 04:00 Glucose (Glutose) 15 gm Q15M PRN PO DECREASED GLUCOSE; Start 03/20/18 at 04:00 Glucose (Glutose) 22.5 gm Q15M PRN PO DECREASED GLUCOSE; Start 03/20/18 at 04:00 Dextrose (D50w Syringe) 25 ml Q15M PRN IV DECREASED GLUCOSE; Start 03/20/18 at 04:00 Dextrose (D50w Syringe) 50 ml Q15M PRN IV DECREASED GLUCOSE; Start 03/20/18 at 04:00 Glucagon (Glucagen) 1 mg Q15M PRN IM DECREASED GLUCOSE; Start 03/20/18 at 04:00 Glucose (Glutose) 15 gm Q15M PRN BUCCAL DECREASED GLUCOSE; Start 03/20/18 at 04:00 Ivabradine (Corlanor) 2.5 mg BID WITH MEALS PO ; Start 03/20/18 at 17:55 DAYANARA MORTON MD Mar 20, 2018 16:45
[2018-03-20] MEDS: IVABRADINE HCL 5 MG TABLET PO SCH (18:30)
[2018-03-20] MEDS ORDERED: INSULIN GLARGINE [LANTus] (100 UNITS/ML) SYG SC SCH (20:00)
[2018-03-20] MEDS ORDERED: EZETIMIBE 10 MG TAB PO SCH (21:00)
[2018-03-21] VITALS: BP 110/59; PULSE 55; RESP 19
[2018-03-21] MEDS ORDERED: ACCU-CHEK XX SCH (02:00)
[2018-03-21 04:00] VITALS: BP 98/52; PULSE 63; PULSE 70; RESP 17
[2018-03-21] MEDS: INSULIN ASPART [NOVOLOG] 3 ML PEN SC SCH ×2 (07:55→11:55)
[2018-03-21 08:11] VITALS: PULSE 56
[2018-03-21] MEDS: ASPIRIN (EC) 81 MG TAB PO SCH (08:40)
[2018-03-21] MEDS: FINASTERIDE 5 MG TAB PO SCH (08:40)
[2018-03-21] MEDS: FUROSEMIDE 20 MG TAB PO SCH (08:40)
[2018-03-21] MEDS: ALLOPURINOL 100 MG TAB PO SCH (08:40)
[2018-03-21] MEDS: CLOPIDOGREL 75 MG TAB PO SCH (08:40)
[2018-03-21] MEDS: IVABRADINE HCL 5 MG TABLET PO SCH (08:41)
[2018-03-21] MEDS: HEPARIN 5,000 UNIT/1 ML VIAL SC SCH (08:48)
--- NOTE | 2018-03-21 09:01 | PN ---
DATE: 03/21/2018 SUBJECTIVE: The patient is stable. No fevers overnight. The patient's shortness of breath has impr francy. OBJECTIVE: VITAL SIGNS: Blood pressure is 98/52, respirations 17, pulse 70, temperature 98.0. HEENT: Head is normocephalic. NECK: Supple. HEART: Regular rate. LUNGS: Show diminished breath sounds at the base. ABDOMEN: Soft, nontender to palpation without rebound or guarding. EXTREMITIES: Negative for clubbing, cyanosis. Trace edema. DERMATOLOGIC: No rashes. MUSCULOSKELETAL: No joint effusion. NEUROLOGIC: No change in exam. MEDICATIONS: Reviewed. LABORATORY DATA: Has been reviewed. The patient's BUN 38, creatinine 1.80, phosphorus 5.4. ASSESSMENT AND PLAN: 1. Nonoliguric acute kidney injury on top of chronic kidney disease stage 3b with previous baseline creatinine of 1.5 to 1.8 mg/dL. The patient's etiology of acute kidney injury secondary to hemodynam ics. The patient's renal function is fluctuating, but at baseline. At this point, continue current diuretic regimen. The patient's urinalysis and electrolytes were reviewed. No evidence of active se diment. Continue to monitor renal function closely, monitor electrolytes closely. Will adjust diure tic regimens as needed. 2. Acute heart failure, diastolic, systolic. The patient is clinically improving. Continue current diuretic regimen. Will adjust Lasix as needed. Please note I did speak with the patient about taki ng daily dose of diuretics. The patient has agreed. Will continue to monitor renal function, as sta salma above. 3. Mineral bone disorder. The patient is hyperphosphatemic, mild. Continue to monitor. 4. Anemia. Monitor hemoglobin and hematocrit levels. 5. Chest pain, palpitations resolved, possibly related to recent medications. Continue to monitor. 6. Diabetes. Continue current diabetic regimen. 7. Coronary artery disease. Continue medical management. 8. Arrhythmia, status post pacemaker placement. 9. History of valvular heart disease. 10. Benign prostatic hypertrophy. Continue Proscar. Dictated By: VIVIAN MAYORGA DO NR/NTS Conf#: [id number] DID#: [id number] CC: CAMI IRAHETA MD;*End*
[2018-03-21 11:16] VITALS: BP 119/61; PULSE 62; RESP 20
[2018-03-21 13:20] VITALS: PULSE 55
--- NOTE | 2018-03-21 14:18 | PDOCDIS ---
Discharge Instructions DIAGNOSIS Discharge Diagnosis CHF exacerbation CONDITION [id number] Patient Condition: [id number] Good HOME CARE INSTRUCTIONS: [id number] Diet Instructions: [id number] [id number] Activity Restrictions: Yufry2a No Restrictions [id number] Bathing Restrictions: [id number] Shower FOLLOW UP/APPOINTMENTS Follow-up Plan f/u w/ Dr. Coleman 2 weeks; f/u w/ Dr. Sampson 2 weeks; f/u w/ Dr. Iraheta as schedulued CAMI IRAHETA MD Mar 21, 2018 14:18
--- NOTE | 2018-03-21 15:28 | CONS ---
Date/Time of Note Date/Time of Note DATE: 03/21/18 TIME: 15:26 Consult Date/Type/Reason Admit Date/Time Mar 19, 2018 at 23:50 Initial Consult Date 03/20/18 Requesting Provider: CAMI IRAHETA MD Subjective cardiology follow up S NO CHEST PAIN OR PRESSURE NO more sob. no PND orthopnea wants to go home d/w physicans and staff O: General: no acute distress HEENT: NC/AT. pupils are equal. round. NECK: + JVD. no stridor. CV: RRR. systolic murmur; no gallop or rubs. PULM: no wheezing or rhonchi. GI: SOFT, NT, ND, no rebound or guarding Extremity: trace B/L LE edema. no clubbing. neuro: awake and alert, OX3. Psych: calm and pleasant rectal: deferred : normal EKG shows ventricular paced rhythm Chest x-ray shows: 1. Stable cardiomegaly without evidence of overt congestive failure or pneumonia. 2. Biventricular pacemaker, also stable. 3. Reverse arthroplasty left shoulder new since the prior study. Objective Vital Signs Date Temp Pulse Resp B/P (MAP) Pulse Ox O2 O2 Flow FiO2 Time Delivery Rate 03/21/18 55 13:20 03/21/18 97.7 20 119/61 98 Room Air 11:16 (80) 03/21/18 2.0 08:37 Intake and Output 03/20/18 03/20/18 03/21/18 1515:00 23:00 07:00 IntakeIntake Total 900 ml BalanceBalance 900 ml Results/Medications Result Diagram: 03/21/18 0545 03/21/18 0545 Results 24 hrs Laboratory Tests Test 03/20/18 18:29 03/20/18 21:32 03/21/18 05:45 03/21/18 08:02 Bedside Glucose 183 107 79 White Blood Count 6.4 Red Blood Count 4.32 L Hemoglobin 12.8 L Hematocrit 40.5 L Mean Corpuscular Volume 93.8 Mean Corpuscular 29.6 Hemoglobin Mean Corpuscular 31.6 L Hemoglobin Concent Red Cell Distribution 13.6 Width Platelet Count 252 Mean Platelet Volume 10.2 Immature Granulocytes % 0.500 H Neutrophils % 62.7 Lymphocytes % 22.5 Monocytes % 9.9 Eosinophils % 3.5 Basophils % 0.9 Nucleated Red Blood 0.0 Cells % Immature Granulocytes # 0.030 Neutrophils # 4.0 Lymphocytes # 1.4 Monocytes # 0.6 Eosinophils # 0.2 Basophils # 0.1 Nucleated Red Blood 0.0 Cells # Sodium Level 142 Potassium Level 4.8 Chloride Level 104 Carbon Dioxide Level 26 Anion Gap 12 Blood Urea Nitrogen 38 H Creatinine 1.80 H Est Glomerular Filtrat Rate mL/min Glucose Level 96 Hemoglobin A1c 6.5 H Calcium Level 9.3 Phosphorus Level 5.4 H Magnesium Level 1.9 Creatine Kinase 35 Creatine Kinase Index 4.1 Creatinine Kinase MB 1.44 (Mass) Troponin I 0.025 B-Type Natriuretic 2820 H Peptide Triglycerides Level 88 Cholesterol Level 142 LDL Cholesterol, 89 Calculated HDL Cholesterol 35 Cholesterol/HDL Ratio 4.0 Thyroid Stimulating 3.300 Hormone (TSH) Free Thyroxine 1.36 Test 03/21/18 11:53 Bedside Glucose 148 Medications Current Medications Allopurinol (Zyloprim) 100 mg DAILY PO Last administered on 03/21/18 08:40; Admin Dose 100 MG; Start 03/20/18 at 09:00 Aspirin (Halfprin) 81 mg DAILY PO Last administered on 03/21/18 08:40; Admin Dose 81 MG; Start 03/20/18 at 09:00 Carvedilol (Coreg) 6.25 mg BID PO Last administered on 03/21/18 08:41; Admin Dose 6.25 MG; Start 03/20/18 at 09:00 Clopidogrel Bisulfate (plaVIX) 75 mg DAILY PO Last administered on 03/21/18 08:40; Admin Dose 75 MG; Start 03/20/18 at 09:00 EZETIMIBE (Zetia) 10 mg HS PO Last administered on 03/20/18at 21:34; Admin Dose 10 MG; Start 03/20/18 at 21:00 Finasteride (Proscar) 5 mg DAILY PO Last administered on 03/21/18 08:40; Admin Dose 5 MG; Start 03/20/18 at 09:00 Furosemide (Lasix) 20 mg DAILY PO Last administered on 03/21/18 08:40; Admin Dose 20 MG; Start 03/20/18 at 09:00 IV Flush (NS 3 ml) 3 ml PER PROTOCOL IV ; Start 03/20/18 at 03:00 Lorazepam (Ativan) 0.5 mg Q8H PRN PO ANXIETY; Start 03/20/18 at 03:00 Ondansetron HCl (Zofran Inj) 4 mg Q6H PRN IV NAUSEA AND/OR VOMITING; Start 03/20/18 at 03:00 Nitroglycerin (Nitroglycerin (Sl Tab) 0.4 Mg) 1 tab Q5M PRN SL CHEST PAIN; Start 03/20/18 at 03:00 Acetaminophen (Tylenol Tab) 650 mg Q6H PRN PO PAIN LEVEL 1-3 OR FEVER Last administered on 03/20/18at 04:54; Admin Dose 650 MG; Start 03/20/18 at 03:00 Zolpidem Tartrate (Ambien) 5 mg QHS PRN PO INSOMNIA Last administered on 03/20/18at 21:35; Admin Dose 5 MG; Start 03/20/18 at 03:00 Docusate Sodium (Colace) 100 mg Q12H PRN PO CONSTIPATION; Start 03/20/18 at 03:00 Bisacodyl (Dulcolax) 5 mg DAILY PRN PO CONSTIPATION; Start 03/20/18 at 03:00 Heparin Sodium (Porcine) (Heparin (5000 Units/1ml)) 5,000 unit Q12 SC Last administered on 03/21/18at 08:48; Admin Dose 5,000 UNIT; Start 03/20/18 at 09:00 Diagnostic Test (Pha) (Accu-Chek) 1 ea 02 XX ; Start 03/21/18 at 02:00 Insulin Glargine (Lantus) 12 units DAILY@2000 SC Last administered on 03/20/18at 21:38; Admin Dose 12 UNITS; Start 03/20/18 at 20:00 Insulin Aspart (Novolog Insulin Pen) NOVOLOG *MILD* ALGORITHM WITH MEALS BEDTIME SC Last administered on 03/21/18at 11:55; Admin Dose 1 UNIT; Start 03/20/18 at 07:55 Miscellaneous Information 1 ea NOTE XX ; Start 03/20/18 at 04:00 Glucose (Glutose) 15 gm Q15M PRN PO DECREASED GLUCOSE; Start 03/20/18 at 04:00 Glucose (Glutose) 22.5 gm Q15M PRN PO DECREASED GLUCOSE; Start 03/20/18 at 04:00 Dextrose (D50w Syringe) 25 ml Q15M PRN IV DECREASED GLUCOSE; Start 03/20/18 at 04:00 Dextrose (D50w Syringe) 50 ml Q15M PRN IV DECREASED GLUCOSE; Start 03/20/18 at 04:00 Glucagon (Glucagen) 1 mg Q15M PRN IM DECREASED GLUCOSE; Start 03/20/18 at 04:00 Glucose (Glutose) 15 gm Q15M PRN BUCCAL DECREASED GLUCOSE; Start 03/20/18 at 04:00 Ivabradine (Corlanor) 2.5 mg BID WITH MEALS PO Last administered on 03/21/18at 08:41; Admin Dose 2.5 MG; Start 03/20/18 at 17:55 Assessment/Plan Chief Complaint/Hosp Course 1. Dyspnea multifactorial mostly secondary to congestive heart failure: 2. Congestive heart failure acute on chronic secondary systolic heart failure 3. Hypertension 4. Diabetes 5. Coronary artery disease status post PCI of LAD 6. Dyslipidemia 7. Status post by V ICD 8. 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 Renal insufficiency: Recommendations: Continue with aspirin and Plavix We will continue with home carvedilol and Zetia Patient has not tolerating statin and is as an outpatient on PCSK9 inhibitors. We will continue that as outpatient every 2 weeks Lasix as per renal Diabetic management as per internal medicine/endocrine dc planning is in process Thank you for this referral. We will continue to follow along with you DAYANARA MORTON MD [facility] DAYANARA MORTON MD Mar 21, 2018 15:28
--- NOTE | 2018-03-21 16:45 | DS ---
Date/Time of Note Date/Time of Note DATE: 03/21/18 TIME: 16:42 Discharge Summary Admission/Discharge Info Admit Date/Time Mar 19, 2018 at 23:50 Discharge Date/Time Mar 21, 2018 at 15:18 Discharge Diagnosis CHF exacerbation Patient Condition: Good Consults Suriat: cardiology; Adrián: nephrology Procedures none Hx of Present Illness 72 y/o [place] M w/ h/o T2DM, HTN, hyperlipidemia, CKD stage 2, BPH, xenogenic heart valve replacement, diastolic CHF, CAD w/ AICD and recent PCI w/ stent placement s/p hospitalization for CHF exacerbation 2 weeks ago. Pt. reports that since then has failed to regain his strength. Has opted out of cardiac rehab since that time and reports decreased exercise tolerance. However, felt well enough until last night when he was sitting at home and developed sensation of electric shock sensation radiating up to his head. Subsequently became diaphoretic and developed rushing sensation at lower mid-left chest. Came to ER. Troponin (-). BNP 5,270. CXR did not show infiltrate. Pt. admitted. Of note, since admit pt. had complete recurrence of symptoms from last night including sensation of diaphoresis which nurse reports pt. did NOT appear diaphoretic. In addition HR monitor did not validate tachycardia in that moment. Hospital Course Pt. diuresed w/ furosemide and amiodarone was d/c'ed. Cardiology believes pt. might be intolerant of physical effects of amiodarone. Pt. improved clinically and BNP decreased by half. Pt. clinically stable and ready for d/c home. Concurred by nephrology and cardiology who would like to see pt. on low-dose daily furosemide. Hopefully this will keep him from recurrence of CHF exacerbation in the future. Home Meds Active Scripts Zolpidem Tartrate (Ambien Mohamud) 5 Mg Tablet, 5 MG PO QHS PRN for INSOMNIA for 30 Days, #30 TAB 3 Refills Prov:LEO HARPER MD 03/05/18 Furosemide* (Furosemide*) 20 Mg Tablet, 20 MG PO DAILY for 30 Days, #30 TAB 3 Refills Prov:LEO HARPER MD 03/05/18 Finasteride* (Finasteride*) 5 Mg Tablet, 5 MG PO DAILY for 30 Days, #30 TAB 3 Refills Prov:LEO HARPER MD 03/05/18 Allopurinol* (Allopurinol*) 100 Mg Tablet, 100 MG PO DAILY for 30 Days, #30 TAB 3 Refills Prov:LEO HARPER MD 03/05/18 Reported Medications Dulaglutide (Trulicity) 1.5 Mg/0.5 Ml Pen.injctr, 1.5 MG SQ Q FRI 03/02/18 Nateglinide* (Nateglinide*) 120 Mg Tablet, 120 MG PO AC MEALS, TAB 03/02/18 Clopidogrel Bisulfate* (Clopidogrel Bisulfate*) 75 Mg Tablet, 75 MG PO DAILY, #30 TAB 03/02/18 Ezetimibe* (Zetia*) 10 Mg Tablet, 10 MG PO HS, TAB 03/02/18 Insulin Glargine* (Lantus*) 100 Unit/Ml Soln, 24 UNIT SC QHS, #1 VIAL 03/02/18 Alirocumab (Praluent Pen) 75 Mg/1 Ml Pen.injctr, 75 MG SQ Q 2 WEEK 03/02/18 Carvedilol* (Carvedilol*) 6.25 Mg Tablet, 6.25 MG PO BID, #60 TAB 03/02/18 Aspirin* (Aspirin* EC) 81 Mg Tablet.dr, 81 MG PO DAILY, TAB 03/02/18 Ivabradine HCl (Corlanor) 5 Mg Tablet, 5 MG PO BID, #60 TAB 03/02/18 Discontinued Scripts Amiodarone Hcl* (Amiodarone Hcl*) 200 Mg Tablet, 100 MG PO DAILY for 30 Days, #30 TAB 3 Refills Prov:LEO HARPER MD 03/05/18 Follow-up Plan f/u w/ Dr. Coleman 2 weeks; f/u w/ Dr. Sampson 2 weeks; f/u w/ Dr. Harper as schedulued Primary Care Provider Leo Harper MD Time spent on discharge: > 30 minutes Pending Labs Laboratory Tests Test 03/20/18 18:29 03/20/18 21:32 03/21/18 05:45 03/21/18 08:02 Bedside 183 107 79 Glucose mg/dL (70-220) mg/dL (70-220) mg/dL (70-220) White Blood 6.4 Count 10^3/ul (4.8-1 0.8) Red Blood 4.32 Count 10^6/ul (4.70- 6.10) Hemoglobin 12.8 g/dl (14.0-18. 0) Hematocrit 40.5 % (42.0-52.0) Mean 93.8 Corpuscular fl (82.0-101.0 Volume ) Mean 29.6 Corpuscular pg (29.0-33.0) Hemoglobin Mean 31.6 Corpuscular g/dl (32.0-37. Hemoglobin Conc 0) ent Red Cell 13.6 Distribution % (11.5-14.5) Width Platelet Count 252 10^3/UL (140-4 15) Mean Platelet 10.2 Volume fl (7.4-10.4) Immature 0.500 Granulocytes % % (0.001-0.429 ) Neutrophils % 62.7 % (39.0-77.0) Lymphocytes % 22.5 % (15.0-51.0) Monocytes % 9.9 % (0.0-11.0) Eosinophils % 3.5 % (0.0-7.0) Basophils % 0.9 % (0.0-2.0) Nucleated Red 0.0 Blood Cells % /100WBC (0.0-0 .0) Immature 0.030 Granulocytes # 10^3/ul (0.0-0 .031) Neutrophils # 4.0 10^3/ul (1.6-7 .5) Lymphocytes # 1.4 10^3/ul (0.8-2 .9) Monocytes # 0.6 10^3/ul (0.3-0 .9) Eosinophils # 0.2 10^3/ul (0.0-0 .5) Basophils # 0.1 10^3/ul (0.0-0 .1) Nucleated Red 0.0 Blood Cells # 10^3/ul (0.0-0 .0) Sodium Level 142 mmol/L (135-14 4) Potassium 4.8 Level mmol/L (3.5-5. 1) Chloride Level 104 mmol/L (97-110 ) Carbon Dioxide 26 Level mmol/L (21-31) Anion Gap 12 (5-13) Blood Urea 38 Nitrogen mg/dl (7-20) Creatinine 1.80 mg/dl (0.61-1. 24) Est Glomerular mL/min (>60) Filtrat Rate mL/min Glucose Level 96 mg/dl (70-220) Hemoglobin A1c 6.5 % (0-5.9) Calcium Level 9.3 mg/dl (8.4-10. 2) Phosphorus 5.4 Level mg/dl (2.5-4.9 ) Magnesium 1.9 Level mg/dl (1.7-2.5 ) Creatine 35 Kinase IU/L (23-200) Creatine Kinase 4.1 Index Creatinine 1.44 Kinase MB ng/ml (0.0-2.4 (Mass) ) Troponin I 0.025 ng/ml (0.000-0 .120) B-Type 2820 Natriuretic PG/ML (0-125) Peptide Triglycerides 88 Level mg/dl (0-149) Cholesterol 142 Level mg/dl (100-200 ) LDL 89 mg/dl Cholesterol, Calculated HDL 35 Cholesterol mg/dl (31-75) Cholesterol/HDL 4.0 RATIO Ratio Thyroid 3.300 Stimulating MIU/L (0.465-4 Hormone (TSH) .680) Free Thyroxine 1.36 ng/dl (0.78-2. 44) Test 03/21/18 11:53 Bedside 148 Glucose mg/dL (70-220) LEO HARPER MD Mar 21, 2018 16:45
== END 2018-03-21 15:18 | disposition home or self-care (01) ==
LOC: E/R 21:44 → TEL 23:50 → INTOOBSV 23:50
PROVIDERS: ADMIT Internal Medicine; ATTEND Internal Medicine
DX: I50.42 Chronic combined systolic (congestive) and diastolic (congestive) heart failure (principal); I12.9 Hypertensive chronic kidney disease with stage 1 through stage 4 chronic kidney disease, or unspecified chronic kidney disease; E11.22 Type 2 diabetes mellitus with diabetic chronic kidney disease; N18.2 Chronic kidney disease, stage 2 (mild); I25.10 Atherosclerotic heart disease of native coronary artery without angina pectoris; R00.2 Palpitations; E78.5 Hyperlipidemia, unspecified; E79.0 Hyperuricemia without signs of inflammatory arthritis and tophaceous disease; R07.9 Chest pain, unspecified; D29.1 Benign neoplasm of prostate; Z79.4 Long term (current) use of insulin; Z79.01 Long term (current) use of anticoagulants; Z95.810 Presence of automatic (implantable) cardiac defibrillator; Z95.5 Presence of coronary angioplasty implant and graft; Z79.82 Long term (current) use of aspirin; Z95.3 Presence of xenogenic heart valve; Z87.891 Personal history of nicotine dependence
CPT/HCPCS: 71045; 80048; 80053; 80061; 81003; 82043; 82550; 82553; 82962; 83036; 83735; 83880; 84100; 84155; 84300; 84439; 84443; 84484; 85025; 85610; 93005; 99285; G0378; J1644; J1815; J1940